=== PATIENT | female | born 1990 | race Caucasian/White ===

== ENCOUNTER 2022-11-22 08:01 | Emergency (ER) | payer OTHER ==
[~2022-11-22] VITALS: Ht 170.2 cm; Wt 108.9 kg
== END 2022-11-22 12:20 | disposition home or self-care (01) ==
LOC: ER 08:01
DX: S82.63XA Displaced fracture of lateral malleolus of unspecified fibula, initial encounter for closed fracture (principal); W19.XXXA Unspecified fall, initial encounter; Y93.9 Activity, unspecified; Y92.9 Unspecified place or not applicable

== ENCOUNTER → 2025-04-27 | Emergency (ER) | payer OTHER ==
[~2025-04-27] VITALS: Ht 170.2 cm; Wt 111.1 kg
[~2025-04-27] MED LIST: CLONIDINE HCL 0.1 MG TABLET PO ONE; KETOROLAC TROMETHAMINE 60 MG VIAL IM ONE; KETOROLAC TROMETHAMINE 60 MG VIAL IM STA; NORVASC5 MG PO; ORPHENADRINE CITRATE 30 MG/ML AMPUL IM STA; ORPHENADRINE CITRATE 30 MG/ML AMPUL ONE; cloNIDine HCL 0.2 MG TABLET PO STA
[2025-04-27 02:36] LABS: BASO % 0.6 % (0.1-1.2); EOS # 0.12 (0.04-0.54); EOS % 1.2 % (0.7-7.0); HEMATOCRIT 39.5 % (34.1-44.9); HEMOGLOBIN 13.1 g/dL (11.2-15.7); LYMPH # 2.38 (1.18-3.74); LYMPH % 23.8 % (19.3-53.1); MONO # 0.77 (0.24-0.82); MONO % 7.7 % (4.7-12.5); NEUT # 6.62 (1.56-6.13); NEUT % 66.2 % (34.0-71.1); PLATELET COUNT 346 K/uL (163-369); RED BLOOD COUNT 5.03 M/uL (3.93-5.22); RED CELL DISTRIBUTION WIDTH 12.8 % (11.6-14.4)
== END | disposition home or self-care (01) ==
LOC: ER 00:40
DX: I10 Essential (primary) hypertension (principal); F41.8 Other specified anxiety disorders